=== PATIENT | male | born 1960 | race Caucasian/White ===

== ENCOUNTER 2018-11-19 12:38 | Emergency (ER) | payer OTHER ==
[2018-11-19 14:23] VITALS: BP 147/92
--- NOTE | 2018-11-19 14:37 | UC ---
Laceration HPI - HPI Summary HPI Summary: 58-year-old male presents with complaints of laceration to his left middle finger. Reports he accidentally cut the finger with a pair of kitchen haley while cutting cardboard at approximately 12:00 PM. Bleeding was controlled prior to arrival with direct pressure. Reports full range of motion. Right hand dominant. Last tetanus was within the past 5 years. Denies any numbness or tingling. - History Of Current Complaint Chief Complaint: UCLaceration Stated Complaint: LEFT HAND-MIDDLE FINGER LACERATION Time Seen by Provider: 11/19/18 14:32 Hx Obtained From: Patient Pain Intensity: 0 - Allergies/Home Medications Allergies/Adverse Reactions: Allergies Allergy/AdvReac Type Severity Reaction Status Date / Time No Known Allergies Allergy Verified 11/19/18 14:23 Home Medications: Home Medications NK [No Home Medications Reported] 11/19/18 [History Confirmed 11/19/18] PMH/Surg Hx/FS Hx/Imm Hx Previously Healthy: Yes - Denies significant PMH - Surgical History Surgical History: Yes Surgery Procedure, Year, and Place: right knee repair 1980 - Family History Known Family History: Positive: Non-Contributory - Social History Occupation: Employed Full-time Lives: Alone Alcohol Use: None Substance Use Type: None Smoking Status (MU): Never Smoked Tobacco Review of Systems All Other Systems Reviewed And Are Negative: Yes Constitutional: Positive: Negative Skin: Positive: Other - See HPI Respiratory: Positive: Negative Cardiovascular: Positive: Negative Gastrointestinal: Positive: Negative Genitourinary: Positive: Negative Motor: Negative: Weakness Neurovascular: Negative: Decreased Sensation Musculoskeletal: Negative: Decreased ROM Neurological: Positive: Negative Is Patient Immunocompromised?: No Physical Exam - Summary Physical Exam Summary: GENERAL APPEARANCE: Well developed, well nourished, alert and cooperative, and appears to be in no acute distress. CARDIAC: Normal S1 and S2. No S3, S4 or murmurs. Rhythm is regular. There is no peripheral edema, cyanosis or pallor. Extremities are warm and well perfused. Capillary refill is less than 2 seconds. Peripheral pulses intact. LUNGS: Clear to auscultation without rales, rhonchi, wheezing or diminished breath sounds. ABDOMEN: Positive bowel sounds. Soft, nondistended, nontender. No guarding or rebound. No masses or hepatosplenomegally. MUSKULOSKELETAL: ROM intact to all extremities. No joint erythema or tenderness. Normal muscular development. Normal gait. EXTREMITIES: Superficial V-shaped laceration to the palmar aspect of the left middle finger just distal to the PIP joint. Bleeding controlled. Full ROM to the finger. Circulation and sensation intact. SKIN: Skin normal color, texture and turgor. Triage Information Reviewed: Yes Vital Signs: Initial Vital Signs Temp 97.8 F 11/19/18 14:19 Pulse 72 11/19/18 14:19 Resp 14 11/19/18 14:19 BP 147/92 11/19/18 14:19 Pulse Ox 99 11/19/18 14:19 Vital Signs Reviewed: Yes Images Hands: 1 - V-shaped superficial flap laceration with bleeding controlled. Laceration Repair - Laceration Repair 1 Description: Linear - V-shaped Irrigation With Pressure Irrigation Device: Yes Closure Material: Skin Adhesive, SteriStrips Laceration Course/Dx - Course/Dx Course Of Treatment: 58-year-old male presents with complaints of laceration to his left middle finger. Reports he accidentally cut the finger with a pair of kitchen haley while cutting cardboard at approximately 12:00 PM. Bleeding was controlled prior to arrival with direct pressure. Reports full range of motion. Right hand dominant. Last tetanus was within the past 5 years. Denies any numbness or tingling. Afebrile. Hypertensive otherwise vital signs stable. Patient had a superficial V-shaped laceration to the palmar aspect of his left middle finger immediately distal to the PIP joint with bleeding controlled. Full range of motion to the finger. Circulation and sensation intact. Remainder of exam is unremarkable. Discussed closure options with the patient including sutures versus Steri-Strips and skin adhesive and the patient is electing for the latter. The wound was thoroughly irrigated by the RN prior to closure. The wound and margins were brought into good alignment, secured with a single 1/ 8 inch Steri-Strip and then further closed using a skin adhesive. Clean gauze dressing was applied by the RN and patient was placed in a finger splint to prevent reopening of the wound. Wound care, anticipatory guidance, and warning symptoms were reviewed with the patient. Verbalizes understanding and agrees with plan of care. - Differential Dx - Laceration/Wound Differental Diagnoses: Laceration - Diagnosis Provider Diagnosis: Laceration of left middle finger Discharge ED - Sign-Out/Discharge Documenting (check all that apply): Patient Departure All imaging exams completed and their final reports reviewed: No Studies - Discharge Plan Condition: Stable Disposition: HOME Patient Education Materials: Finger Laceration (ED), Skin Adhesive Care (ED), Steristrips (ED) Referrals: No Primary Care Phys,NOPCP [Primary Care Provider] - Additional Instructions: Your laceration as repaired with a combination of skin adhesive and Steri- Strips. The adhesive will slowly wear off over the next several days. Keep the adhesive dry for the next 24 hours. After 24 hours you may shower and wash your hands as usual. Do not apply any lotions or ointments to the adhesive as this may dissolve the adhesive and cause the wound to reopen. The Steri-Strips will slowly peel up from the ends over the next few days. You may trim the ends as needed but do not pull off or you may reopen the wound. Keep the wound covered with a dressing. Change this at least once a day or anytime the dressing becomes wet or soiled. Wear the finger splint that was applied in the clinic for the next 3 days to prevent the wound from inadvertently reopening with movement of the finger. Take acetaminophen (Tylenol) or ibuprofen (Advil, Motrin) according to directions as needed for pain. Watch for signs of infection including fever greater than 100.5 F, severe pain not managed with with pain medicine, redness that spreads, swelling of the finger, pus draining from the wound, or any worsening of symptoms. Seek immediate medical attention if any of these occur. - Billing Disposition and Condition Condition: STABLE Disposition: Home
== END 2018-11-19 15:02 | disposition home or self-care (01) ==
LOC: UCCORT 12:38
DX: S61.213A Laceration without foreign body of left middle finger without damage to nail, initial encounter (principal); W45.8XXA Other foreign body or object entering through skin, initial encounter; Y93.89 Activity, other specified; Y92.9 Unspecified place or not applicable
CPT/HCPCS: 12001; 99202; G0463